=== PATIENT | female | born 1955 | race Caucasian/White ===

== ENCOUNTER 2019-08-20 16:22 | Emergency (ER) | payer MEDICAID ==
[~2019-08-20] VITALS: Ht 162.6 cm; Wt 76.0 kg
[2019-08-20] MEDS ORDERED: MAGNESIUM/ALUMINUM HYDROXIDE/SIMETHICONE 30ML UDC PO ONE (21:00)
[2019-08-20] MEDS ORDERED: FAMOTIDINE 20MG TABLET PO ONE (21:00)
[2019-08-20] MEDS ORDERED: ACETAMINOPHEN 325MG TABLET PO ONE (21:00)
[2019-08-20] MEDS ORDERED: ONDANSETRON 4MG ODT PO ONE (21:00)
[2019-08-20 21:22] LABS: HEMATOCRIT. 35.3 % (36.0-48.0); HEMOGLOBIN. 11.6 g/dL (12.0-16.0); MEAN CORPUSCULAR HEMOGLOBIN 28.1 pg (28.0-32.0); MEAN CORPUSCULAR VOLUME 85.6 fL (81.0-99.0); MEAN PLATELET VOLUME 8.8 fl (7.4-10.4); PLATELET 284 x1000/uL (130-400); RED BLOOD CELL COUNT 4.12 mill/uL (4.2-5.4); RED CELL DISTRIBUTION WIDTH 14.8 % (11.6-14.6)
[2019-08-20 21:24] LABS: CHLORIDE 105 mEq/L (98-107)
[2019-08-20 21:55] LABS: PLATELET ESTIMATE NORMAL
[2019-08-20 22:30] VITALS: BP 120/62
== END 2019-08-21 00:08 | disposition home or self-care (01) ==
LOC: ER 16:30
DX: B34.9 Viral infection, unspecified (principal); I10 Essential (primary) hypertension
CPT/HCPCS: 36415; 71045; 80053; 83690; 84484; 85025; 93005; 99284; Q0162